=== PATIENT | female | born 1990 | race Caucasian/White ===

== ENCOUNTER 2018-08-07 09:45 | Inpatient (IN) | payer MEDICAID ==
[~2018-08-07] VITALS: Ht 167.6 cm; Wt 109.0 kg
[~2018-08-07 09:45] MED LIST: IBUP-1222 PO; OXYC-302 PO; PREN1TAB60 PO
[2018-08-07] MEDS ORDERED: OXYTOCIN 30U/ 0.9% NaCL 500ML 500 ML IV ONE (10:08)
[2018-08-07] MEDS ORDERED: OXYTOCIN 30U/ 0.9% NaCL 500ML 500 ML IV PRN (10:08)
[2018-08-07] MEDS ORDERED: FENTANYL/BUPIV./NS/PF 250 ML EPIDCONT SCH ×2 (10:08→13:10)
[2018-08-07] MEDS ORDERED: LIDOCAINE 1%, 20ML ONE (10:13)
[2018-08-07] MEDS ORDERED: NEWBORN KIT ONE (10:13)
[2018-08-07] MEDS ORDERED: MISOPROSTOL 200 MCG TABLET ONE (10:14)
[2018-08-07] MEDS ORDERED: OXYTOCIN 30U/ 0.9% NaCL 500ML 500 ML ONE ×2 (10:14→18:03)
[2018-08-07] MEDS: LACTATED RINGERS 1,000 ML IV SCH ×4 (10:18→21:10)
[2018-08-07] MEDS ORDERED: TERBUTALINE 1 MG/ML, 1ML IVPush PRN (10:30)
[2018-08-07] MEDS ORDERED: EPHEDRINE 50 MG/ML, 1ML IVPush PRN ×2 (10:30→13:30)
[2018-08-07] MEDS ORDERED: LACTATED RINGERS 1,000 ML IVBOLUS PRN ×2 (10:30→13:30)
[2018-08-07] MEDS ORDERED: FENTANYL PF 500 MCG, BUPIVACAINE/PF 0.5%, 30ML 62.5 ML in SODIUM CHLORIDE 0.9% 177.5 ML EPIDCONT SCH (10:30)
[2018-08-07] MEDS ORDERED: CALCIUM CARBONATE 500 MG TAB.CHEW PO PRN (10:30)
[2018-08-07] MEDS ORDERED: ONDANSETRON 2MG/ML, 2ML IVPush PRN (10:30)
[2018-08-07 11:07] LABS: BASOPHILS # (AUTO) 0.03 x10^3/uL (0-0.1); BASOPHILS % (AUTO) 0 % (0-1); EOSINOPHILS # (AUTO) 0.11 x10^3/uL (0-0.4); EOSINOPHILS % (AUTO) 1 % (1-7); LYMPHOCYTES # (AUTO) 1.89 x10^3/uL (1-3.4); LYMPHOCYTES % (AUTO) 20 % (22-44); MD NO; MEAN CORPUSCULAR VOLUME 91.2 fL (80-100); MEAN PLATELET VOLUME 8.3 fL (7.4-10.4); MONOCYTES # (AUTO) 0.54 x10^3/uL (0.2-0.8); MONOCYTES % (AUTO) 6 % (2-9); NEUTROPHILS # (AUTO) 6.68 x10^3/uL (1.8-6.8); NEUTROPHILS % (AUTO) 72 % (42-75); PLATELET COUNT 265 x10^3/uL (130-400); RED BLOOD COUNT 3.45 x10^6/uL (3.82-5.3); RED CELL DISTRIBUTION WIDTH 14.5 % (9.6-15.2)
[2018-08-07] MEDS ORDERED: FENTANYL PF 100 MCG/2ML ONE (12:28)
[2018-08-07] MEDS ORDERED: LIDOCAINE/PF 1.5%-EPI 1:200K, 30ML ONE (12:40)
[2018-08-07] MEDS ORDERED: EPHEDRINE 50 MG/ML, 1ML ONE (13:15)
[2018-08-07] MEDS ORDERED: NALOXONE 0.4 MG/ML, 1ML IVPush PRN (13:30)
[2018-08-07] MEDS ORDERED: MISOPROSTOL 200 MCG TABLET PR PRN (17:00)
[2018-08-07] MEDS ORDERED: ONDANSETRON 2MG/ML, 2ML IV PRN (17:00)
[2018-08-07] MEDS ORDERED: ACETAMINOPHEN 325 MG TABLET PO PRN (17:00)
[2018-08-07] MEDS ORDERED: IBUPROFEN 600 MG TABLET ONE (17:51)
[2018-08-07] MEDS: OXYTOCIN 30U/ 0.9% NaCL 500ML 500 ML IV SCH (18:06)
[2018-08-07] MEDS: IBUPROFEN 600 MG TABLET PO PRN (18:06)
[2018-08-07 19:15] VITALS: BP 109/67
[2018-08-07] MEDS: DOCUSATE 100 MG CAPSULE PO PRN (20:03)
[2018-08-07] MEDS: OXYcodone/APAP 5/325MG TABLET PO PRN (20:03)
[2018-08-08 00:30] VITALS: BP 106/70
[2018-08-08] MEDS: IBUPROFEN 600 MG TABLET PO PRN ×3 (00:46→15:12)
[2018-08-08 02:17] LABS: BASOPHILS # (AUTO) 0.06 x10^3/uL (0-0.1); BASOPHILS % (AUTO) 1 % (0-1); EOSINOPHILS # (AUTO) 0.14 x10^3/uL (0-0.4); EOSINOPHILS % (AUTO) 1 % (1-7); LYMPHOCYTES # (AUTO) 2.75 x10^3/uL (1-3.4); LYMPHOCYTES % (AUTO) 23 % (22-44); MD NO; MEAN CORPUSCULAR HEMOGLOBIN 30.3 pg (27.0-34.8); MEAN CORPUSCULAR HGB CONC 32.9 g/dL (32.4-35.8); MEAN CORPUSCULAR VOLUME 92.1 fL (80-100); MEAN PLATELET VOLUME 8.1 fL (7.4-10.4); MONOCYTES # (AUTO) 0.73 x10^3/uL (0.2-0.8); MONOCYTES % (AUTO) 6 % (2-9); NEUTROPHILS # (AUTO) 8.28 x10^3/uL (1.8-6.8); NEUTROPHILS % (AUTO) 69 % (42-75); PLATELET COUNT 234 x10^3/uL (130-400); RED BLOOD COUNT 3.24 x10^6/uL (3.82-5.3); RED CELL DISTRIBUTION WIDTH 14.6 % (9.6-15.2)
[2018-08-08] MEDS: OXYTOCIN 30U/ 0.9% NaCL 500ML 500 ML IV SCH ×2 (03:00→13:00)
[2018-08-08 03:45] VITALS: BP 107/69
[2018-08-08] MEDS: OXYcodone/APAP 5/325MG TABLET PO PRN ×3 (04:34→15:12)
[2018-08-08] MEDS: LACTATED RINGERS 1,000 ML IV SCH ×2 (05:10→13:10)
[2018-08-08 08:00] VITALS: BP 101/66
[2018-08-08] MEDS: DOCUSATE 100 MG CAPSULE PO PRN (08:50)
[2018-08-08] MEDS ORDERED: PRENATAL VIT/IRON/FA 1 EACH TABLET PO SCH (09:00)
[2018-08-08 12:00] VITALS: BP 111/68
[2018-08-08] MEDS ORDERED: RHOGAM FROM BLOOD BANK 1 NOTE EA IM/IV ONE (15:00)
[2018-08-08 16:00] VITALS: BP 116/72
[2018-08-08] MEDS ORDERED: DIPH,PERTUSS(ACELL),TET VAC/PF NC IM-VACC ONE (17:30)
== END 2018-08-08 18:40 | disposition home or self-care (01) | DRG 807 ==
LOC: LDOP 09:45 → LDIP 10:08 → UNDOADMIN 10:17 → LDIP 10:17 → 2NW 18:25
PROVIDERS: ADMIT Obstetrics & Gynecology; ATTEND Obstetrics & Gynecology
PROC: 10E0XZZ Delivery of Products of Conception, External Approach (ICD-10-PCS; principal; 2018-08-08)
PROC: 0HQ9XZZ Repair Perineum Skin, External Approach (ICD-10-PCS; 2018-08-08)
PROC: 3E0R3BZ Introduction of Anesthetic Agent into Spinal Canal, Percutaneous Approach (ICD-10-PCS; 2018-08-08)
PROC: 00HU33Z Insertion of Infusion Device into Spinal Canal, Percutaneous Approach (ICD-10-PCS; 2018-08-08)
DX: O70.0 First degree perineal laceration during delivery (principal); Z37.0 Single live birth; Z3A.38 38 weeks gestation of pregnancy
CPT/HCPCS: 36415; J2790; S0020; 85025; 85461; 86850; 86870; 86900; 86922; 86923; 90715; G0378; J3010; J3490; J2590; J7050; J7120